=== PATIENT | male | born 1965 | race Hispanic/Latino ===

== ENCOUNTER 2016-07-09 13:34 | Emergency (ER) | payer OTHER ==
[~2016-07-09] VITALS: Ht 165.1 cm; Wt 77.3 kg
[~2016-07-09 13:34] MED LIST: ATEN50TA PO; CITA10TA9 PO; INSU100V7 SUBQ; METF850T2 PO; PRA20 PO
[2016-07-09 13:37] VITALS: BP 151/89; PULSE 98; RESP 22; O2SAT 95
[2016-07-09 14:05] LABS: BASOPHILS % (AUTO) 0.2 % (0-3); EOSINOPHILS % (AUTO) 3.5 % (0-5); MONOCYTES % (AUTO) 8.9 % (4-12); Mean Corpuscular Hemoglobin 29.8 pg (27.0-35.0); Mean Corpuscular Volume 83.9 fL (81-100); NEUTROPHILS % (AUTO) 61.2 % (40-74); Platelet Count 206 bil/L (150-400)
--- NOTE | 2016-07-09 14:35 | DRSVH ---
PROCEDURE: X-RAY CHEST, TWO VIEWS ([id number]) INDICATIONS: SHORTNESS OF BREATH, COUGH TECHNIQUE: 2 views of the chest were acquired. COMPARISON: [facility], , CHEST 2VW, 11/02/2011, 19:53. FINDINGS: Surgical changes and devices: None. Lungs and pleura: No pleural effusions or pneumothorax. Lungs are clear. Mediastinum: Mediastinal contours are normal. Heart size is normal. Bones and chest wall: No suspicious bony abnormalities. Soft tissues appear unremarkable. IMPRESSION: No acute cardiopulmonary disease process. Dictated by: Loreto Maharaj MD, PhD on 07/09/2016 at 14:34 Approved by: Loreto Maharaj MD, PhD on 07/09/2016 at 14:34
--- NOTE | 2016-07-09 15:43 | ED.REPORT ---
HPI-URI / Cough / Cold Date of Service Jul 09, 2016 ED Provider: Manuel Cook PA-C Chai is a 51-year-old male with a history of diabetes, hypertension and hyperlipidemia who presents with a chief complaint of cough. Patient speaks Guatemalan, his adult daughter acts as supervisor sheet manufacturing. Patient states he had a bothersome cough for one week which does not allow him to sleep. Associated with nasal congestion and rhinorrhea, sore throat, He reports paroxysms of coughing that make him lightheaded and dyspnea. Reports a history of pneumonia , admits smoking 5 cigarettes per day but denies asthma. Denies fever, eye pain , ear pain, abdominal pain, vomiting, diarrhea. Traveled to [place] 06/20/2016 through 08/08/2016, returning home yesterday. Denies leg swelling, calf pain, recent trauma/surgery, history of DVT, hemoptysis. Nursing Notes Stated Complaint: BAD COUGH POSS PNEUMONIA Chief Complaint: FLU/Cold Symptoms Nursing Notes Reviewed: Yes Allergies: Coded Allergies: acetaminophen (Verified Allergy, Intermediate, Dizziness, 01/29/14) N/V,Rash hydrocodone (Verified Allergy, Intermediate, Dizziness, 01/29/14) N/V,Rash Scheduled Atenolol (Atenolol) 50 Mg Tablet 50 MG PO DAILY Benzonatate (Benzonatate) 200 Mg Capsule 200 MG PO TID Citalopram (Citalopram) 10 Mg Tablet 10 MG PO DAILY Insulin Glargine (Lantus U100 Insulin Vial) 100 Unit/Ml Vial 28 UNIT SUBQ QPM- INSULIN Metformin (Metformin) 850 Mg Tablet 850 MG PO BIDWM Pravastatin (Pravachol) 20 Mg Tab 20 MG PO HS General Time Seen by MD: 14:52 Chief Complaint Cough, non-productive Past Medical History Past Medical History Diabetes, hypertension, hyperlipidemia, depression Smoking History Current Every Day Smoker Review of Systems Negative unless stated otherwise in history of present illness Physical Exam General: Well appearing, well developed, well nourished, no acute distress. Head: Atraumatic, normocephalic. No mastoid tenderness. Eyes: No scleral icterus or injection. No discharge. PERRL. Vision grossly intact. Ears: Pinna and tragus nontender with manipulation. External auditory canal patent, atraumatic and without discharge. Tympanic membrane slightly injected, shiny and translucent without fluid, bulging, retraction or perforation. Hearing grossly intact. Nose: Symmetrical, nares patent without discharge. No frontal or maxillary sinus tenderness. Mouth/pharynx: normal dentition, mucus membranes moist. Tonsils 2+ and symmetrical, uvula midline. Pharynx injected, no cobblestoning or discharge. Voice clear. Neck: No tenderness or lymphadenopathy. Trachea midline. Respiratory: Persistent, clinically evident cough. Regular rate and rhythm. Mild diffuse rhonchi bilaterally. Cardiovascular: Regular rate and rhythm, without murmur, gallop or rub. No pedal edema. Gastrointestinal: Abdomen flat and non-tender without guarding or rebound. Bowel sounds normoactive. Skin: Warm and dry. Legs: Negative calf tenderness, swelling, Homans sign bilaterally Neurological: Grossly nonfocal. Psychological: Alert and oriented. Speech appropriate, linear and logical. Behavior appropriate. Initial Vital Signs Vital Signs (First) Date Time Temp Pulse Resp B/P Pulse Ox O2 Delivery O2 Flow Rate FiO2 07/09/16 13:37 36.8 98 22 151/89 95 Room Air Initial VS: Reviewed, Vital signs normal Interpretation & Diagnostics Lab Results Interpretation Result Diagram: 07/09/16 1354 07/09/16 1354 Test 07/09/16 13:54 White Blood Count 12.5th/mm3 (3.8-10.1) Red Blood Count 5.16mil/mm3 (4.40-5.80) Hemoglobin 15.4g/dL (13.8-17.2) Hematocrit 43.3% (41.0-50.0) Mean Corpuscular Volume 83.9fL (81-100) Mean Corpuscular Hemoglobin 29.8pg (27.0-35.0) Mean Corpuscular Hemoglobin Concent 35.6% (32.0-37.0) Red Cell Distribution Width 13.3% (12.3-15.4) Platelet Count 206bil/L (150-400) Neutrophils (%) (Auto) 61.2% (40-74) Lymphocytes (%) (Auto) 25.4% (14-46) Monocytes (%) (Auto) 8.9% (4-12) Eosinophils (%) (Auto) 3.5% (0-5) Basophils (%) (Auto) 0.2% (0-3) Sodium Level 137mEq/L (134-144) Potassium Level 3.7mEq/L (3.5-5.2) Chloride Level 97mEq/L (97-108) Carbon Dioxide Level 27mmol/L (18-29) Blood Urea Nitrogen 13mg/dL (6-24) Creatinine 0.71mg/dL (0.76-1.27) Estimat Glomerular Filtration Rate 124mL/min (>59) Glucose Level 192mg/dL (60-99) Calcium Level 9.0mg/dL (8.5-10.1) Total Bilirubin 0.8mg/dL (0.0-1.2) Aspartate Amino Transf (AST/SGOT) 21U/L (0-50) Alanine Aminotransferase (ALT/SGPT) 30U/L (0-44) Alkaline Phosphatase 122U/L (25-150) Total Protein 6.6g/dL (6.4-8.4) Albumin 4.0g/dL (3.4-5.0) Hold Fermin Top Tube Received (Received) Re-Eval/Medical Decision Med Decision/Clinical Course Med Decision/Clinical Course: I discussed this case with Dr. Marcelino. [id number] male with a one-week history of cough associated with his congestion, rhinorrhea, sore throat. Denies fevers. history and physical revealed mild diffuse rhonchi in all cody and persisting clinically evident cough. Chest x-ray is normal, labs reveal slight leukocytosis. Consider pulmonary embolism, and the patient admits to recent history of travel but he is otherwise PERC negative, onset of symptoms status is not aligned with episodes of travel, and he has no symptoms of DVT. I believe is viral upper respiratory infection as opposed to pulmonary embolus, pneumonia, lung mass, tuberculosis. Recommended symptomatic care, prescribed Tessalon Perle. Recommended primary care follow-up in 1 week if symptoms not resolving and provided return precautions. Counseled smoking cessation. Discharge & Departure Impression: Primary Impression: Upper respiratory infection URI type: unspecified viral URI Qualified Code: J06.9 - Acute upper respiratory infection, unspecified Disposition: Home Discharge Condition All VS Reviewed: Yes Condition: Stable Patient Instructions: Upper Respiratory Infection (ED) Additional Instructions: History and physical are reassuring that this is unlikely to be a condition such as pneumonia or strep throat that requires antibiotic treatment. This is also unlikely be caused by a blood clot in the lungs. I believe that you have a viral upper respiratory infection. Rest, drink small amounts of fluids throughout the day, and eat small amounts of food as tolerated. The treatment is largely symptomatic: -I typically recommend doxylamine/ dextromethorphan (brand name: Robitussin Extra Strength Nighttime Cough DM) for use at night, which will help you sleep and reduce cough. If your pharmacy does not have this, ask your pharmacist to recommend an alternative. -Pain and fever is best treated with 400 mg of ibuprofen (Advil, Motrin) every 6 hours, or 1000 mg of acetaminophen (Tylenol) every 6 hours. These drugs can be taken at the same time for more severe pain. -Pseudoephedrine (Sudafed) taken in the morning will help relieve nasal congestion. In many pharmacies this is kept behind the counter, so ask the pharmacist. -Cepacol lozenges are very helpful for sore throat. -I will prescribe Tessalon Perles to help your cough during the day. Follow-up with your primary care provider if your symptoms have not significantly improved in a week. Remember that sometimes a cough can take up to a month to completely resolve. Return to the emergency department for new or worsening symptoms including chest pain, shortness of breath, difficulty breathing or speaking. Referrals: Jade Fishman MD EDSupervising Provider for APC: Len Marcelino MD copies to: Jade Fishman MD, Seth PA-C Jul 09, 2016 15:42
[2016-07-09] MEDS ORDERED: BENZ200C44 PO (15:45)
[2016-07-09 15:55] VITALS: BP 131/78; PULSE 92; O2SAT 98
== END 2016-07-09 15:53 | disposition home or self-care (01) ==
LOC: SED 13:34
DX: J06.9 Acute upper respiratory infection, unspecified (principal); R05 Cough; E11.9 Type 2 diabetes mellitus without complications; I10 Essential (primary) hypertension; E78.5 Hyperlipidemia, unspecified; F17.200 Nicotine dependence, unspecified, uncomplicated; Z88.6 Allergy status to analgesic agent; Z79.4 Long term (current) use of insulin; Z87.01 Personal history of pneumonia (recurrent); Z88.5 Allergy status to narcotic agent; Z79.84 Long term (current) use of oral hypoglycemic drugs

== ENCOUNTER 2017-01-29 08:05 | Observation (INO) | payer OTHER ==
[2017-01-29] VITALS (7 sets, daily range): BP systolic 137–157; BP diastolic 68–104; PULSE 76–100; RESP 15–21; O2SAT 95–98
[~2017-01-29] VITALS: Ht 165.1 cm; Wt 81.1 kg
[~2017-01-29 08:05] MED LIST changes: +BENZ200C44 PO
--- NOTE | 2017-01-29 08:13 | ED.REPORT ---
HPI-Chest Pain 40 and Over Date of Service Jan 29, 2017 ED Provider: Dr. Aquilino Hernandez Pt is a 51 year old male with a history of a diabetes, hypertension. smoking, and GERD who presents to the ED via EMS from urgent care complaining of intermittent chest pain onset 3 days ago that worsened this morning. Pt c/o associated mild SOB. Pt describes the chest pain as a "tightness" that is exacerbated by exertion. He rates the pain a 3/10 in severity. Associated symptoms include belching. He denies nausea, vomiting, diaphoresis, cough, fever , or any other symptoms. Pt was not given any medication in route. Nursing Notes Stated Complaint: CHEST PAIN/ SOB Chief Complaint: Chest Pain Nursing Notes Reviewed: Yes Allergies: Coded Allergies: acetaminophen (Verified Allergy, Intermediate, Dizziness, 01/29/14) N/V,Rash hydrocodone (Verified Allergy, Intermediate, Dizziness, 01/29/14) N/V,Rash Scheduled Atenolol (Atenolol) 50 Mg Tablet 50 MG PO DAILY Atorvastatin Calcium (Atorvastatin Calcium) 40 Mg Tablet 40 MG PO DAILY Citalopram (Citalopram) 10 Mg Tablet 10 MG PO DAILY Insulin Glargine (Lantus U100 Insulin Vial) 100 Unit/Ml Vial 25 UNIT SUBQ QAM Insulin Glargine (Lantus U100 Insulin Vial) 100 Unit/Ml Vial 50 UNIT SUBQ QPM Losartan Potassium (Losartan Potassium) 25 Mg Tablet 25 MG PO DAILY Metformin (Metformin) 850 Mg Tablet 850 MG PO TIDWM Scheduled PRN Triamcinolone Acetonide (Triamcinolone Acetonide Ointment) 80 Gm Oint...g. 1 APPLIC TOPICAL BID PRN PRN For Itching General Time Seen by MD: 08:13 Chief Complaint Chest pain Hx Obtained From: Patient Arrived By: Ambulance Sudden in Onset?: Yes Onset Occurred: 3 days ago Symptom Duration: Since onset Severity: Current: Pain level 3 out of 10 Recent Healthcare: No recent doctor visit, No recent hospitalization Similar Sx Previous: No Risk Factors )( CAD Risk Stratification Diabetes mellitus Hypertension SmokingNo Known CAD Risk factors reviewed )( TAD Risk Stratification HypertensionNo Aortic valve disease, No Risk factors reviewed )( PE Risk Stratification No Immobilization, No , No Surgery Last 60 Days Risk factors reviewed HEART Score HEART for MACE Score: 4-7 (mod risk 12%-16.6%) (4) Past Medical History Past Medical History Diabetes, hypertension, hyperlipidemia, depression Reports: GERD Past Surgical History Back Right shoulder Bilat wrist Hernia Smoking History Current Every Day Smoker Ambulatory Status Independent Review of Systems Review of Systems Note: +belching Constitutional: Denies: Fever Respiratory: Reports: Shortness of breath, Denies: Non-productive cough Cardiovascular: Reports: Chest pain GI: Denies: Nausea, Vomiting Skin: Denies Diaphoresis Complete sys rev & neg: except as marked. Physical Exam Initial Vital Signs Vital Signs (First) Date Time Temp Pulse Resp B/P Pulse Ox O2 Delivery O2 Flow Rate FiO2 01/29/17 08:10 36.9 88 21 140/96 97 Room Air Initial VS: Reviewed General/Constitutional: Awake, Alert, No acute distress Respiratory / Chest: Atraumatic, Breath sounds NL, Breath sounds = bilat Mild left side chest wall tenderness Cardiovascular: Heart rate NL, Regular rhythm, Heart sounds NL Abdomen: Atraumatic, Soft, Non-tender Neck: Atraumatic, Supple, No meningismus, Full range of motion, No JVD Back: Atraumatic, Inspection NL, Full range of motion Lower Extremity / Pelvis / MS: Atraumatic, Inspection NL, Full range of motion , No edema Skin: Atraumatic, Color NL, No rash, Warm, Dry Neurologic: Oriented X3, Speech NL, No motor deficits, No sensory deficits Head / Eyes: Atraumatic, Normocephalic, PERRL, EOMI ENT: Atraumatic, Airway patent, Mucous membranes moist Interpretation & Diagnostics Lab Results Interpretation Result Diagram: 01/29/17 0819 01/29/17 0819 Test 01/29/17 08:19 01/29/17 08:26 White Blood Count 10.9th/mm3 (3.8-10.1) Red Blood Count 5.27mil/mm3 (4.40-5.80) Hemoglobin 15.8g/dL (13.8-17.2) Hematocrit 44.9% (41.0-50.0) Mean Corpuscular Volume 85.2fL (81-100) Mean Corpuscular Hemoglobin 30.0pg (27.0-35.0) Mean Corpuscular Hemoglobin Concent 35.2% (32.0-37.0) Red Cell Distribution Width 12.5% (12.3-15.4) Platelet Count 227bil/L (150-400) Neutrophils (%) (Auto) 63.8% (40-74) Lymphocytes (%) (Auto) 26.9% (14-46) Monocytes (%) (Auto) 6.2% (4-12) Eosinophils (%) (Auto) 1.6% (0-5) Basophils (%) (Auto) 0.4% (0-3) Sodium Level 136mEq/L (134-144) Potassium Level 4.4mEq/L (3.5-5.2) Chloride Level 100mEq/L (97-108) Carbon Dioxide Level 22mmol/L (18-29) Blood Urea Nitrogen 19mg/dL (6-24) Creatinine 0.67mg/dL (0.76-1.27) Estimat Glomerular Filtration Rate 133mL/min (>59) Glucose Level 252mg/dL (60-99) Calcium Level 8.9mg/dL (8.5-10.1) Magnesium Level 1.8mg/dL (1.6-2.6) Total Bilirubin 0.2mg/dL (0.0-1.2) Aspartate Amino Transf (AST/SGOT) 20U/L (0-50) Alanine Aminotransferase (ALT/SGPT) 38U/L (0-44) Alkaline Phosphatase 128U/L (25-150) Troponin T 0.010ug/L (0.0-0.011) Total Protein 7.1g/dL (6.4-8.4) Albumin 4.3g/dL (3.4-5.0) Hold Fermin Top Tube Received (Received) ECG Interpretation ECG Interpretation: Sinus rhythm rate 86 ST elev, probable normal sophy repol pattern Time: 08:14 Interpreted by: ED physician X-Ray Chest Interpretation Chest Xray Interpretation: IMPRESSION: No radiographic evidence of acute cardiopulmonary pathology. Dictated by: Axel Vernon M.D. on 01/29/2017 at 8:49 Approved by: Axel Vernon M.D. on 01/29/2017 at 8:50 View: Portable, 1 view Interpretation / Wet Read by: Interpret - Radiologist Re-Eval/Medical Decision Med Decision/Clinical Course Heart score 4. Pain resolved after medications. We will plan to admit for inpatient stress test. Source of Hx: Old records Time of Eval: 10:05 Re-Evaluation/Progress Note: Rechecked pt. Discussed ekg, imaging, and lab results. Discussed plan for admission. Patient understands and agrees with plan. All questions addressed at this time. Consultation : Referral / Consult Name: Froylan Rocha MD Consulted With: Hospitalist Call Returned at: 13:02 Dealer Development Manager: Will see patient, Agrees with eval, Agrees with plan, Accepts admit Note: Discussed pt's case. Accepts admit. Counseled Regarding: Diagnosis, Lab results, Need for admission Discharge & Departure Primary Impression: Chest pain Chest pain type: unspecified Qualified Code: R07.9 - Chest pain, unspecified Disposition: ADMITTED TO HOSPITAL Discharge Condition All VS Reviewed: Yes Condition: Stable Referrals: Carolin Johnson DO (PCP) Scribe Attestation Portions of this note were transcribed by Sabrina Garcia and Vicky Ugalde. I, Dr. Aquilino Hernandez personally performed the history, physical exam and medical decision-making; I reviewed and confirmed the accuracy of the information in the transcribed note. copies to: Carolin Johnson Timothy S DO Jan 29, 2017 08:13 Sabrina Garcia Jan 29, 2017 08:47 VICKY UGALDE Jan 29, 2017 10:46
[2017-01-29 08:30] LABS: BASOPHILS % (AUTO) 0.4 % (0-3); EOSINOPHILS % (AUTO) 1.6 % (0-5); MONOCYTES % (AUTO) 6.2 % (4-12); Mean Corpuscular Volume 85.2 fL (81-100); NEUTROPHILS % (AUTO) 63.8 % (40-74); Platelet Count 227 bil/L (150-400)
[2017-01-29] MEDS ORDERED: LidocaineVisc 2%:Antacid 1:1 10 mL Syringe PO SCH (08:35)
[2017-01-29] MEDS ORDERED: Ondansetron 2 mg/mL 2 mL Inj IVPUSH PRN ×2 (08:50→13:05)
--- NOTE | 2017-01-29 08:51 | DRSVH ---
PROCEDURE: X-RAY CHEST ONE VIEW, PORTABLE ([id number]) INDICATIONS: PAIN TECHNIQUE: One view of the chest was acquired. COMPARISON: None. FINDINGS: Surgical changes and devices: None. Lungs and pleura: No pleural effusions or pneumothorax. Lungs are clear. Mediastinum: Mediastinal contours appear normal. Heart size is normal. Bones and chest wall: No suspicious bony lesions. Overlying soft tissues appear unremarkable. IMPRESSION: No radiographic evidence of acute cardiopulmonary pathology. Dictated by: Axel Vernon M.D. on 01/29/2017 at 8:49 Approved by: Axel Vernon M.D. on 01/29/2017 at 8:50
[2017-01-29 08:57] LABS: TROPONIN T 0.01 ug/L (0.0-0.011)
[2017-01-29 09:08] LABS: Magnesium 1.8 mg/dL (1.6-2.6)
[2017-01-29] MEDS ORDERED: Alum-Mag Hydrox-Simeth 30 mL Suspension PO PRN (13:05)
[2017-01-29] MEDS ORDERED: ATOR40TA69 PO (13:27)
[2017-01-29] MEDS ORDERED: LOSA25TA21 PO (13:27)
[2017-01-29] MEDS ORDERED: TRIA80OI TOPICAL (13:27)
[2017-01-29] MEDS ORDERED: INSU100V7 SUBQ (13:27)
[2017-01-29] MEDS ORDERED: Glucose 40% Oral Gel 15 Gm Tube PO PRN (14:20)
--- NOTE | 2017-01-29 14:26 | PCM.HPMED ---
Subjective Date of Service Jan 29, 2017 Primary Provider: Admitting Physician: Froylan Rocha MD Primary Care Physician: Carolin Johnson DO Attending Physician: Froylan Rocha MD Admit Status: From the Emergency Department, Admit to [facility] Team Chief Complaint: Chest Pain History of Present Illness: Pt is a 51 year old pleasant male, serbian speaking with a history of a diabetes on insulin, hypertension, HLD, smoking, and GERD who presents to the ED via EMS from urgent care complaining of intermittent chest tightness for last 3 days that increased this morning. 3/10 in severity. Non-radiating. Worse w/ exertion. He does note SOB w/ exertion in addition to chest tightness. Also has had increased belching. Pt denies having this type of pain before, has never taken NTG. Denies any recent trauma or lifting. Denies N/V/Abd pain. Denies any palpitations. Denies fever/chills/cough. Denies nightsweats/weight loss. Review of Systems: 12 point ROS negative except that in HPI. Allergies Coded Allergies: acetaminophen (Verified Allergy, Intermediate, Dizziness, 01/29/14) N/V,Rash hydrocodone (Verified Allergy, Intermediate, Dizziness, 01/29/14) N/V,Rash Home Medications Atenolol (Atenolol) 50 Mg Tablet 50 MG PO DAILY Benzonatate (Benzonatate) 200 Mg Capsule 200 MG PO TID Citalopram (Citalopram) 10 Mg Tablet 10 MG PO DAILY Insulin Glargine (Lantus) 50 units evening, 25 u morning. Metformin (Metformin) 850 Mg Tablet 850 MG PO BIDWM Pravastatin (Pravachol) 20 Mg Tab 20 MG PO HS PMH Diabetes, hypertension, hyperlipidemia, depression, GERD, Chronic Back Pain Surgical History Back Right shoulder Bilat wrist Hernia Family History Non-contrib Social History Hx Alcohol Use: Yes Alcoholic Drinks Per Day: occasional Hx Substance Use: No Smoking Status: Current Every Day Smoker Exam Vital Signs Vital Sign - Last Date Time Temp Pulse Resp B/P Pulse Ox O2 Delivery O2 Flow Rate FiO2 01/29/17 13:52 84 16 142/86 95 Room Air 01/29/17 08:10 36.9 Exam Gen: NAD, AOx4, HEENT: NCAT, PERRLA, EOMI, MMM, sclera anicteric. Neck: Soft, supple, no thyromegaly/JVD/LAD. Resp: CTAB, no R/R/W. CV: S1 S2, RRR, No M/R/G Abd: Soft, (+) BS, NT/ND, no guarding/rebound/organomegaly. Ext: +PP, No edema. Skin: warm/dry/intact Neuro/Psych: Cooperative, appr mood/affect. CN II-XII grossly intact. No focal deficits. Lab and Diagnostics Result Diagram: 01/29/1781801/29/17818 X-Rays, CTs and MRIs ECG Interpretation: Sinus rhythm rate 86 ST elev, probable normal sophy repol pattern. Same as in 2014. Chest Xray Interpretation: IMPRESSION: No radiographic evidence of acute cardiopulmonary pathology. Dictated by: Axel Vernon M.D. on 01/29/2017 at 8:49 Approved by: Axel Vernon M.D. on 01/29/2017 at 8:50 Assessment & Plan Pt is a 51 year old pleasant male with a history of a diabetes on insulin, hypertension, HLD, smoking, and GERD who presents to the ED via EMS from urgent care complaining of intermittent chest tightness for last 3 days that increased this morning. Acute Chest Pain- acute, active. Many cardiac risk factors. May be MSK etiology , rule out ACS. CXR- no evid of acute infection. Not pleuritic in nature. -EKG- ZHAO c/w early repolorization abn. Same as in EKG of 2014. Trop negx1, repeat. - Will order Echo. -Stress Test in AM. Consider Cardio Consult if abn. Diabetes- chronic, active- on Insulin. Pt can't recall last Hba1c. Lantus 50 units nightly, 25 units in AM. Resume regimen. Hold Metformin. Start SSI- Medium. Check Hba1c in AM. Hypertension- poa, active. - Will give Losartan, hold Atenolol until after stress test. Chronic Medical Issues- HLD- Chronic, stable. Smoking- Chronic, stable. GERD- Chronic, stable. Chronic Back Pain, stable. Code- full DVT ppx- SCD, Lovenox. Patient Status- Patient is admitted under observation status expected length of stay less than 2 midnights due to severity of presenting symptoms, risk of adverse events, and complexity of treatment plan. Pain Evaluation: Adequate Pain Control GI Prophylaxis: Other VTE Prophylaxis: Sub-Q Enoxaparin VTE Mechanical Devices: Intermittant Pneumatic CD Resuscitation Status: CPR: Attempt Resuscitation Time spent >60 minutes Froylan Rocha MD Jan 29, 2017 14:26
[2017-01-29] MEDS ORDERED: Dextrose 10% 250 ML IV PRN (15:05)
--- NOTE | 2017-01-29 17:04 | DRSVH ---
[facility] [address] [place] [address] Echocardiogram Report Name: YEN THORNE TStudy Da te: 01/29/2017 Height: 65 in Hospital Exam Location: [facility] Weight: 179 lb Gender: Male BSA: 1.9 m2 : 1965 Age: 51 yrs BP: 144/88 mm Hg Reason For Study: CHEST PAIN, DYSPNEA Ordering Physician: Pernell Lyon Performed By: Zeke Cabrera Referring Physician: KYREE BAUER Interpretation Summary 1) Normal left ventricular size, wall motion, and systolic function (EF 65- 70%). 2) Normal right ventricular size and function. 3) No significant valvular abnormalities. 4) Pulmonary artery pressures cannot be estimated because of the lack of a measurable TR jet velocity. 5) No prior Echo available for comparison. Procedure: A two-dimensional transthoracic echocardiogram with color flow and Doppler was performed. The study quality was technically adequate. There is no prior echocardiogram noted for this patient. The patient was in normal sinus rhythm during the exam. Left Ventricle: The left ventricle is normal in size. Left ventricular wall thickness is at the upper limits of normal. The ejection fraction is estimated to be 65-70%. Left ventricular systolic function is normal. Left ventricular wall motion is normal. Right Ventricle: The right ventricle is normal in size, thickness and function. Atria: Both atria are normal in size. The interatrial septum is intact with no evidence for an atrial septal defect. Mitral Valve: The mitral valve is normal. There is trace mitral regurgitation. Aortic Valve: The aortic valve is normal in structure and function. There is no aortic valve stenosis. No aortic regurgitation is present. Tricuspid Valve: The tricuspid valve is normal. Pulmonary artery pressures cannot be estimated because of the lack of a measurable TR jet velocity. There is a trace or physiologic amount of tricuspid regurgitation. Pulmonic Valve: The pulmonic valve is not well seen, but is grossly normal. There is no pulmonic valvular regurgitation. Great Vessels: The aortic root is normal size. The ascending aorta is at the upper limits of normal in size. The pulmonary artery is normal size. The IVC is of normal diameter and collapses greater than 50% with a sniff. This suggests a low right atrial pressure of 3 mm Hg. Pericardium/ Pleura There is no pericardial effusion. There is no pleural effusion. MMode/2D Measurements & Calculations LVIDd: 4.3 cm RA long axis LVOT diam: 2.1 cm LVIDs: 3.1 cm LA A2 area: 14.5 cm Ao root diam FS: 26.7 % LA A4 area: 17.2 cm RA area IVSd: 1.1 cm LA length (vol) asc Aorta Diam LVPWd: 1.0 cm : 13.2 cm LA vol: 40.1 ml RA vol Ao Arch Diam (Prox LA vol index : 31.3 ml Trans): 2.9 cm RA : 21.2 ml/m2 : 16.6 mm2 LV vaughn. diameter/BSA LV sys. diameter/BSA RVD1 (basal) (cm/m^2): 2.3 (cm/m^2): 1.7 Doppler Measurements & Calculations Ao V2 max: 160.4 cm/secMV E max lacho MV E/A: 0.77 PA V2 max Ao max P.3 mmHg : 64.8 cm/sec Med Peak E' Lacho : 127.7 cm/sec Ao mean P.5 mmHg MV A max lacho PA mean PG LVOT Max Lacho : 84.3 cm/sec E/E' med: 17.1 : 3.8 mmHg : 132.2 cm/sec Lat Peak E' Lacho MARYANA(I,D): 3.1 cm sev ratio: 0.86 E/E' lat: 12.6 E/e' average MV dec time: 0.22 sec Ao V2 mean LV V1 max PG PA V2 mean : 122.8 cm/sec : 93.7 cm/sec Ao V2 VTI: 29.7 cmLV V1 VTI: 25.5 cmPA pr(Accel) MARYANA(V,D): 3.0 cm2 : 38.5 mmHg MARYANA indexed to BSA (cm^2/m^2): 1.6 Reading Physician:05:01 PM
[2017-01-29] MEDS: Insulin LISPRO 300 Unit/3 mL Inj SUBQ SCH ×2 (17:28→21:38)
--- NOTE | 2017-01-29 18:05 | NUR ---
Transfer/Stress Test Pt. was transferred from the ED to room [address]. Pt. arrived at about 1415 in no apparent distress, denied CP and SOB. Pt. is on heart monitor, SR 90 per tele. Pt. will have a stress test tomorrow morning and will be NPO after midnight tonight. Estimated time of procedure will be at 0700 tomorrow (01/30/2017). Pt. is aware and understands to be NPO tonight as well.
[2017-01-29] MEDS ORDERED: Insulin GLARgine 100 Unit/mL Syringe SUBQ SCH (21:00)
[2017-01-30] VITALS (8 sets, daily range): BP systolic 138–150; BP diastolic 79–96; PULSE 76–94; RESP 16–22; O2SAT 96–97
--- NOTE | 2017-01-30 03:05 | NUR ---
BG/MIBI Pt scheduled for MIBI this AM. Pt aware, education provided earlier in shift re test and all questions answered. Pt NPO since 0000. Last caffeine intake was on 01/28, per pt BG high earlier in shift. Sliding scale insulin given along with Lantus, per orders. At 0240, BG was 154. Pt has denied pain all shift. Will continue to monitor.
[2017-01-30 05:53] LABS: BASOPHILS % (AUTO) 0.5 % (0-3); EOSINOPHILS % (AUTO) 2.2 % (0-5); MONOCYTES % (AUTO) 6.8 % (4-12); Mean Corpuscular Hemoglobin 30.5 pg (27.0-35.0); Mean Corpuscular Volume 84.9 fL (81-100); NEUTROPHILS % (AUTO) 60.4 % (40-74); Platelet Count 208 bil/L (150-400)
[2017-01-30] MEDS: Insulin LISPRO 300 Unit/3 mL Inj SUBQ SCH ×3 (08:00→17:24)
[2017-01-30] MEDS ORDERED: Insulin GLARgine 100 Unit/mL Syringe SUBQ SCH (08:30)
[2017-01-30] MEDS ORDERED: ASPI81TA3 PO (16:21)
--- NOTE | 2017-01-30 16:25 | PCM.DIMED ---
Discharge Instructions Date of Service Jan 30, 2017 Dates of Hospitalization Jan 29, 2017 at 13:50 Discharge Diagnosis Discharge Diagnosis Acute Chest Pain- acute, resolved. Diabetes- chronic, active- Hypertension- poa, active. HLD- Chronic, stable. Smoking- Chronic, stable. GERD- Chronic, stable. Chronic Back Pain, stable. Medication Instructions Additional med instructions Continue all home meds including Metformin and Lantus. Take one tablet of Aspirin 81mg daily. Diet Discharge Diet: Diabetic Call your provider Call your provider for: Chest pain Patient Instructions Patient Instructions Your cardiac stress test was normal and did not show any cardiac cause for your chest pain. Follow up with your primary doctor in 1 week. One of your labs, the Hba1c, which is used to assess diabetes control is still pending. When you follow up with your doctor they will be able to let you of this result and make necessary changes to your diabetes regimen. Follow-up Provider: [facility] Follow-up with PCP in: 1 week Froylan Rocha MD Jan 30, 2017 16:25
--- NOTE | 2017-01-30 16:42 | NUR ---
Social Work-screening/ discharge: Data:EMR reviewed. Pt is a 51 y/o male who was admitted on 01/29/17 for chest pain per H&P. Pt's insurance is [employer] and PCP is Carolin Johnson DO. EMR reviewed. Pt is medically stable for discharge. Pt resides at home with family who will provide transport home. Pt has been up independent in his room. No discharge needs identified. All updated and agreeable to plan. Assessment:Pt who is independent at baseline. Plan:Pt to discharge home today via POV.No discharge needs identified. All updated and agreeable to plan. INGE Nolasco
[2017-01-30] MEDS ORDERED: Alum-Mag Hydrox-Simeth 30 mL Suspension PO PRN (17:15)
[2017-01-30] MEDS ORDERED: Al Hydrox/Mg Hydrox/Simeth PO (17:16)
--- NOTE | 2017-01-30 18:27 | NUR ---
Discharge Pt. discharged to home after his results form his stress test came back normal. Pt. took all his belongings from room [address] [facility]. IV DC'D x1 intact and asymptomatic. Pt. was given educational material on aspirin, maalox plus, and angina in [place]. Pt. was also instructed to follow up with with [facility] in 1 week. Pt. state he would try to make an appointment when he can tomorrow. Pt. left ambulating with his two sons, steady and strong gait observed.
--- NOTE | 2017-01-30 21:05 | DRSVH ---
Caution: Report not yet finalized and possibly incomplete! PROCEDURE: EITHER REST OR STRESS ONLY REFERRING PHYSICIAN: Froylan Rocha MD PRIMARY CARE PROVIDER: Carolin Johnson MD INDICATIONS: Mr. Jon is a 51-year-old gentleman who presented to [facility] with sympto ms of chest discomfort. His initial evaluation was unremarkable and a nuclear cardiac stress study w as performed to exclude underlying ischemic heart disease. COMPARISON: None. STRESS TEST: This patient was exercised on a regular Shorty protocol for a total of 9 minutes and 58 seconds, stopping due to symptoms of fatigue without chest pain or EKG changes of ischemia. The svitlana ent had a normal heart rate and blood pressure response to exercise and had symptoms of mild atypical chest discomfort before, during and after the exam. PROCEDURE: This gentleman received 30.6 mCi of technetium-99 tetrofosmin following stress. A restin g examination was unnecessary. FINDINGS: 1. Raw Data: Raw data imaging demonstrates overall good image quality with no significant source of artifact or interference. 2. Quantitative Gated SPECT Imaging: Gated imaging demonstrates a small left ventricular volume wit h an end diastolic volume of 52 cc. Overall ejection fraction is estimated at 82%. No regional wall motion abnormalities were seen. 3. Quantitative Perfusion SPECT Imaging: Stress myocardial perfusion imaging shows a slight amount of diaphragmatic attenuation artifact, which is reversed with prone imaging. There appears to be nor mal distribution of radioisotope throughout the myocardium and no perfusion abnormalities that would suggest ischemia or scar. IMPRESSION: Normal nuclear cardiac stress study. DISCUSSION: Nuclear cardiac stress study suggests a low likelihood for significant underlying obstru ctive coronary artery disease. Dictated by: Edward Razo M.D. on 01/30/2017 at 16:36 Transcribed by: ARELI on 01/31/2017 at 0:05
--- NOTE | 2017-02-03 13:58 | PCM.DC.MED ---
Discharge Summary Date of Service Feb 03, 2017 Dates of Hospitalization Date of Hospital Admission Jan 29, 2017 at 13:50 Date of Discharge: Feb 03, 2017 Providers: Admitting Physician: Kyree Bauer MD Primary Care Physician: Carolin Johnson DO Attending Physician: Kyree Bauer MD Diagnosis at Time of Discharge Diagnosis at Time of Discharge Acute Chest Pain- acute, resolved. Diabetes- chronic, active- Hypertension- poa, active. HLD- Chronic, stable. Smoking- Chronic, stable. GERD- Chronic, stable. Chronic Back Pain, stable. Procedures XRay, CTs & MRIs ECG Interpretation: Sinus rhythm rate 86 ST elev, probable normal sophy repol pattern. Same as in 2014. Chest Xray Interpretation: IMPRESSION: No radiographic evidence of acute cardiopulmonary pathology. Dictated by: Axel Vernon M.D. on 01/29/2017 at 8:49 Approved by: Axel Vernon M.D. on 01/29/2017 at 8:50 Brief History Pt is a 51 year old pleasant male, [place] speaking with a history of a diabetes on insulin, hypertension, HLD, smoking, and GERD who presents to the ED via EMS from urgent care complaining of intermittent chest tightness for last 3 days that increased this morning. 3/10 in severity. Non-radiating. Worse w/ exertion. He does note SOB w/ exertion in addition to chest tightness. Also has had increased belching. Pt denies having this type of pain before, has never taken NTG. Denies any recent trauma or lifting. Denies N/V/Abd pain. Denies any palpitations. Denies fever/chills/cough. Denies nightsweats/weight loss. Hospital Course Pt is a 51 year old pleasant male with a history of a diabetes on insulin, hypertension, HLD, smoking, and GERD who presents to the ED via EMS from urgent care complaining of intermittent chest tightness for last 3 days prior to admit. Stress test was negative. Acute Chest Pain- acute, active. Many cardiac risk factors. May be MSK etiology , rule out ACS. CXR- no evid of acute infection. Not pleuritic in nature. -EKG- ZHAO c/w early repolorization abn. Same as in EKG of 2014. Trop negx1, repeat. - Will order Echo. -Stress Test negative. Diabetes- chronic, active- on Insulin. Pt can't recall last Hba1c. Lantus 50 units nightly, 25 units in AM. Resume regimen. Hold Metformin. Start SSI- Medium. Check Hba1c in 8.7. Hypertension- poa, active. - Will give Losartan, hold Atenolol until after stress test. Chronic Medical Issues- HLD- Chronic, stable. Smoking- Chronic, stable. GERD- Chronic, stable. Chronic Back Pain, stable. Code- full DVT ppx- SCD, Lovenox. Exam Vital Signs (Last) Date Time Temp Pulse Resp B/P Pulse Ox O2 Delivery O2 Flow Rate FiO2 01/30/17 16:39 36.7 83 18 141/84 96 Room Air Test 01/29/17 08:19 01/29/17 08:26 01/29/17 16:29 01/30/17 05:30 Sodium Level 136mEq/L (134-144) Potassium Level 4.4mEq/L (3.5-5.2) Chloride Level 100mEq/L (97-108) Carbon Dioxide Level 22mmol/L (18-29) Blood Urea Nitrogen 19mg/dL (6-24) Creatinine 0.67mg/dL (0.76-1.27) Estimat Glomerular Filtration Rate 133mL/min (>59) Glucose Level 252mg/dL (60-99) Calcium Level 8.9mg/dL (8.5-10.1) Magnesium Level 1.8mg/dL (1.6-2.6) Total Bilirubin 0.2mg/dL (0.0-1.2) Aspartate Amino Transf (AST/SGOT) 20U/L (0-50) Alanine Aminotransferase (ALT/SGPT) 38U/L (0-44) Alkaline Phosphatase 128U/L (25-150) Total Protein 7.1g/dL (6.4-8.4) Albumin 4.3g/dL (3.4-5.0) Hold Fermin Top Tube Received (Received) Troponin T < 0.010ug/L (0.0-0.011) White Blood Count 11.2th/mm3 (3.8-10.1) Red Blood Count 5.22mil/mm3 (4.40-5.80) Hemoglobin 15.9g/dL (13.8-17.2) Hematocrit 44.3% (41.0-50.0) Mean Corpuscular Volume 84.9fL (81-100) Mean Corpuscular Hemoglobin 30.5pg (27.0-35.0) Mean Corpuscular Hemoglobin Concent 35.9% (32.0-37.0) Red Cell Distribution Width 12.6% (12.3-15.4) Platelet Count 208bil/L (150-400) Neutrophils (%) (Auto) 60.4% (40-74) Lymphocytes (%) (Auto) 28.8% (14-46) Monocytes (%) (Auto) 6.8% (4-12) Eosinophils (%) (Auto) 2.2% (0-5) Basophils (%) (Auto) 0.5% (0-3) Hemoglobin A1c 8.7% (4.8-5.6) Discharge Medications Discharge Medications Aspirin Chew (Aspirin Chew) 81 Mg Chew 81 MG PO DAILY Prescribed by: KYREE BAUER MD Atenolol (Atenolol) 50 Mg Tablet 50 MG PO DAILY (Reported) Atorvastatin Calcium (Atorvastatin Calcium) 40 Mg Tablet 40 MG PO DAILY ( Reported) Citalopram (Citalopram) 10 Mg Tablet 10 MG PO DAILY (Reported) Insulin Glargine (Lantus U100 Insulin Vial) 100 Unit/Ml Vial 25 UNIT SUBQ QAM ( Reported) Insulin Glargine (Lantus U100 Insulin Vial) 100 Unit/Ml Vial 50 UNIT SUBQ QPM ( Reported) Losartan Potassium (Losartan Potassium) 25 Mg Tablet 25 MG PO DAILY (Reported) Metformin (Metformin) 850 Mg Tablet 850 MG PO TIDWM (Reported) As needed ([Al Hydrox/Mg Hydrox/Simeth]) 30 ML SUSP 30 ML PO Q4H PRN PRN For Dyspepsia or Heartburn Prescribed by: KYREE BAUER MD Triamcinolone Acetonide (Triamcinolone Acetonide Ointment) 80 Gm Oint...g. 1 APPLIC TOPICAL BID PRN PRN For Itching (Reported) Additional med instructions Continue all home meds including Metformin and Lantus. Take one tablet of Aspirin 81mg daily. Followup Plan Disposition: Home Discharge Diet: Diabetic Patient Instructions Your cardiac stress test was normal and did not show any cardiac cause for your chest pain. Follow up with your primary doctor in 1 week. One of your labs, the Hba1c, which is used to assess diabetes control is still pending. When you follow up with your doctor they will be able to let you of this result and make necessary changes to your diabetes regimen. Follow-up Provider: [facility] Follow-up with PCP in: 1 week Time spent Great than 30 minutes was spent on this discharge. Kyree Bauer MD Feb 03, 2017 13:57
== END 2017-01-30 17:54 | disposition home or self-care (01) ==
LOC: SED 08:05 → EDUNIT# 08:05 → EDBD 08:05 → MPC 13:50
PROVIDERS: ADMIT Internal Medicine; ATTEND Internal Medicine
DX: R07.9 Chest pain, unspecified (principal); E11.9 Type 2 diabetes mellitus without complications; I10 Essential (primary) hypertension; E78.5 Hyperlipidemia, unspecified; F17.210 Nicotine dependence, cigarettes, uncomplicated; K21.9 Gastro-esophageal reflux disease without esophagitis; F32.9 Major depressive disorder, single episode, unspecified; M54.9 Dorsalgia, unspecified; Z79.4 Long term (current) use of insulin; Z79.84 Long term (current) use of oral hypoglycemic drugs; Z79.82 Long term (current) use of aspirin
CPT/HCPCS: 36415; 71010; 78451; 80053; 83036; 83735; 84484; 85025; 93005; 93017; 99285; A4300; A9502; C8929; G0378; G0463; J1650; J1815